=== PATIENT | female | born 1990 | race Hispanic/Latino ===

== ENCOUNTER 2017-05-08 21:12 | Emergency (ER) | payer OTHER ==
[~2017-05-08] VITALS: Ht 152.4 cm; Wt 81.6 kg
[~2017-05-08 21:12] MED LIST: AMOXICILLIN875 M1 PO; FLEXERIL10 MG PO; HYDROCODONE/ACE1 TA1 PO; IBUPROFEN600 M1 PO; IBUPROFEN800 M1 PO; PERCOCET 5-3251 EACH PO; ULTRAM50 M1 PO
[2017-05-08 22:01] VITALS: BP 108/79
--- NOTE | 2017-05-08 23:38 | ED NECK/BACK PAIN COMPLAINT ---
History of Present Illness General Chief Complaint: Neck/Upper Back Pain/Injury Stated Complaint: BACK PAIN, NO KNOWN INJURY Source: patient Exam Limitations: no limitations Vital Signs & Intake/Output Vital Signs & Intake/Output Vital Signs Date Time Temp Pulse Resp B/P B/P Pulse O2 O2 Flow FiO2 Mean Ox Delivery Rate 05/09 0044 16 05/08 2201 97.3 81 18 108/79 97 Room Air ED Intake and Output 05/09 0000 05/08 1200 Intake Total 100 Output Total Balance 100 Intake, Oral 100 Patient 180 lb Weight Weight Estimated Measurement Method Allergies Coded Allergies: No Known Allergies (02/01/17) Reconcile Medications Amoxicillin 875 MG TABLET 1 TAB PO BID dental eruption Cyclobenzaprine HCl 10 MG TABLET 1 TAB PO TID PRN PAIN Ibuprofen 800 MG TABLET 1 TAB PO TID PRN PAIN Ibuprofen 800 MG TABLET 800 MG PO Q6P PRN UTERINE CRAMPING Triage Note: RECEIVED 26 YO FEMALE C/O RIGHT BACK PAIN FROM UPPER BACK TO LOWER BACK, STARTED YESTERDAY, MUCH WORSE THIS AM. NO KNOWN INURY. PT PICKED UPN A BOX THE WRONG WAY, NO PAIN AT FIRST. PAIN WORSE WITH MOVEMENT Triage Nurses Notes Reviewed? yes Onset: Abrupt Duration: day(s): (1), constant, continues in ED, getting worse Timing: single episode today Quality/Severity: severe, sharpness Location: C-spine, T-spine, lumbar spine, paraspinous muscles Radiation: none Context: lifting Method of Injury: unknown Loss of Consciousness: no loss of consciousness Modifying Factors: movement Associated Symptoms: lower back pain, muscle spasm LMP (ages 10-50): unknown : No Patient currently breastfeeds: No HPI: 26-year-old female with no past medical history presents for evaluation of pain in her upper or lower back neck and right shoulder. This pain started today and is gradually been getting worse. There is no trauma. Patient reports that she did berry picker a box yesterday and thinks this may have triggered the pain. The pain is worse with any type of movement of the back neck or right shoulder. No numbness or tingling. She is not taking any medicine for this. She has no history of back problems previously. No urinary symptoms, bowel or bladder dysfunction, fever, abdominal pain, shortness of breath, chest pain or any other associated symptoms. She rates pain as a 10 out of 10. (Lexx Poole) Past History Travel History Traveled to [place] past 21 day No Medical History Any Pertinent Medical History? see below for history Neurological: NONE EENT: NONE Cardiovascular: NONE Respiratory: asthma Gastrointestinal: NONE Hepatic: NONE Renal: NONE Musculoskeletal: NONE Psychiatric: NONE Endocrine: NONE Blood Disorders: NONE Cancer(s): NONE GAS SPECIALIST/Reproductive: NONE Surgical History Surgical History: non-contributory Psychosocial History What is your primary language [place] Tobacco Use: Never used Family History Hx Contributory? No (Lexx Poole) Review of Systems Review of Systems Constitutional: Reports: no symptoms. Eyes: Reports: no symptoms. Ears, Nose, Throat, Mouth: Reports: no symptoms. Respiratory: Reports: no symptoms. Cardiovascular: Reports: no symptoms. Gastrointestinal/Abdominal: Reports: no symptoms. Musculoskeletal: Reports: see HPI, back pain, joint pain, muscle pain, muscle stiffness, neck pain. Skin: Reports: no symptoms. Neurological/Psychological: Reports: no symptoms. All Other Systems: Reviewed and Negative (Lexx Poole) Physical Exam Physical Exam General Appearance: well developed/nourished, no apparent distress, alert, awake Head: atraumatic, normal appearance Eyes: Bilateral: normal appearance, PERRL, EOMI, normal inspection. Ears, Nose, Throat, Mouth: hearing grossly normal, moist mucous membrane Neck: normal inspection, supple, limited range of motion, muscle spasm, pain, paraspinous muscle tender, no midline tenderness, CERVICAL PARASPINOUS MUSCLES TENDER TO PALPATION BILATERALLY. nO MIDLINE PAIN NO STEP-OFFS OR DEFORMITIES NO BRUISING SWELLING OR ABRASIONS Respiratory: normal breath sounds, chest non-tender, no respiratory distress, lungs clear Cardiovascular: regular rate/rhythm, normal peripheral pulses Peripheral Pulses: 2+ radial (R), 2+ radial (L) Gastrointestinal: normal bowel sounds, soft, non-tender, no organomegaly Back: normal inspection, decreased range of motion, no vertebral tenderness, THERE IS DIFFUSE PARASPINAL TENDERNESS OF THE THORACIC AND LUMBAR SPINE BILATERALLY. nO MIDLINE TENDERNESS NO STEP-OFFS OR DEFORMITIES PAIN IS WORSE ON THE RIGHT SIDE. nO BRUISING SWELLING OR ABRASIONS. Extremities: non-tender, lIMITED RANGE OF MOTION OF THE RIGHT SHOULDER DUE TO PAIN. nEUROVASCULAR SUPPLY IS INTACT. pAINFUL PALPATION OF THE RIGHT DELTOID AND RIGHT TRAPEZIUS MUSCLE. nO CLAVICULAR TENDERNESS. nO BRUISING SWELLING OR ABRASIONS NEUROVASCULAR SUPPLY INTACT ALL EXTREMITIES Straight Leg Raising: Right: Negative. Left: Negative. DTR: Patellar: 2: L4 Right, L4 Left. Neurologic/Psych: no motor/sensory deficits, awake, alert, oriented x 3, normal gait Skin: intact, normal color, warm/dry Core Measures CVA/TIA Diagnosis: No (Lexx Poole) Progress Differential Diagnosis: C spine injury, cauda equina syn, herniated disc, myofascial strain, pyelo/UTI, sciatica, ureterolithiasis Plan of Care: Orders Procedure Date/time Status URINE 05/08 2328 Complete Laboratory Tests 05/09/17 0015: Urine Test NEGATIVE Patient seen and evaluated. She is has diffuse muscular tenderness of the neck thoracic and lumbar spine. There was no trauma. Patient was medicated with Tylenol Toradol and cyclobenzaprine. X-rays of the neck thoracic spine and lumbar spine ordered. Patient reports complete resolution of her symptoms after being medicated. She is now moving all extremities equally. Full range of motion of the upper and lower back. She states her pain is a 0 out of 10. She does not wish to stay for x-rays. Patient appears clinically well she has no bony point tenderness. X-rays canceled. Patient was instructed to rest avoid heavy lifting bending or physical activity. Continue Tylenol ibuprofen cycle Benzedrine as needed. Follow-up with primary care doctor discussed return precautions patient appears well she agrees the plan. (Lexx Poole) Departure Departure Disposition: HOME OR SELF CARE Condition: Stable Clinical Impression Primary Impression: Muscle spasm Referrals: Patient Has No Primary Care Dr (PCP/Family) Additional Instructions: Rest, avoid heavy lifting bending excessive physical activity. Continue ibuprofen 800 mg every 8 hours as needed for pain. Cyclobenzaprine can also be used every 8 hours as needed this may cause drowsiness. MAKE A follow-up with YOUr primary care doctor to reveal results today's visit. On his your symptoms return with any concerns. Departure Forms: Customer Survey General Discharge Information Prescriptions: Current Visit Scripts Ibuprofen 1 TAB PO TID PRN PAIN #30 TAB Cyclobenzaprine HCl 1 TAB PO TID PRN PAIN #30 TAB (Lexx Poole) PA/CIRCULATION CLERK Co-Sign Statement Statement: ED Attending supervision documentation- [] I saw and evaluated the patient. I have also reviewed all the pertinent lab results and diagnostic results. I agree with the findings and the plan of care as documented in the PA's/CIRCULATION CLERK's documentation. [x] I have reviewed the ED Record and agree with the PA's/CIRCULATION CLERK's documentation. [] Additions or exceptions (if any) to the PAs/CIRCULATION CLERK's note and plan are summarized below: [] (Sonny JAVIER,Apolinar Horta)
[2017-05-09] MEDS ORDERED: CYCLOBENZAPRINE10 M1 PO (00:34)
[2017-05-09] MEDS ORDERED: IBUPROFEN800 M1 PO (00:34)
== END 2017-05-09 00:48 ==
LOC: ERH 21:12
DX: M62.830 Muscle spasm of back (principal)
CPT/HCPCS: 81025; 96372; J1885

== ENCOUNTER 2017-08-04 02:49 | Inpatient (IN) | payer OTHER ==
--- NOTE | 2017-08-03 14:35 | History & Physical Pre-Op ---
General Information and HPI History of Present Illness: 26-year-old 3 para 3 with a centimeter right ovarian mass anterior to the uterine wall admitted today for laparoscopic excision. Ultrasound and MRI testing is consistent with either dermoid cyst versus hemorrhagic cyst. CA-125 testing within normal limits Allergies/Medications Allergies: Coded Allergies: No Known Allergies (08/02/17) Home Med list No Known Home Medications Past History Medical History Neurological: NONE EENT: NONE Cardiovascular: NONE Respiratory: asthma Gastrointestinal: NONE Hepatic: NONE Renal: NONE Musculoskeletal: NONE Psychiatric: NONE Endocrine: NONE Blood Disorders: NONE Cancer(s): NONE GREY TENDER/Reproductive: NONE Surgical History Pertinent Surgical History: non-contributory Review of Systems Review of Systems Constitutional: Reports: no symptoms. EENTM: Reports: no symptoms. Cardiovascular: Reports: no symptoms. Respiratory: Reports: no symptoms. GI: Reports: no symptoms. Genitourinary: Reports: no symptoms. Musculoskeletal: Reports: no symptoms. Skin: Reports: no symptoms. Neurological/Psychological: Reports: no symptoms. Hematologic/Endocrine: Reports: no symptoms. Immunologic/Allergic: Reports: no symptoms. All Other Systems: Reviewed and Negative Exam & Diagnostic Data Last 24 Hrs of Vital Signs/I&O Intake & Output 08/03 1600 08/03 0800 08/03 0000 Intake Total Output Total Balance Patient 168 lb Weight Physical Exam: HEENT: Normocephalic atraumatic Chest: Clear to auscultation bilaterally Cardiovascular: Normal S1, S2, no murmur rub or gallop Abdomen: Soft nontender nondistended, no mass Pelvic: Deferred to or Extremities: No clubbing cyanosis or edema Neurologic: Nonfocal Assessment/Plan Assessment/Plan: Pelvic Mass. Plan: Laparoscopy, excision; possible laparotomy As Ranked By This Provider Problem List: 1. Pelvic mass
[2017-08-04] VITALS (7 sets, daily range): BP systolic 106–110; BP diastolic 70–80
[~2017-08-04] VITALS: Ht 152.4 cm; Wt 80.7 kg
[~2017-08-04 02:49] MED LIST changes: +CYCLOBENZAPRINE10 M1 PO
[2017-08-04 19:59] LABS: ABSOLUTE BASOPHIL COUNT 0 /CUMM (0.0-0.2); ABSOLUTE EOSINOPHIL COUNT 0 /CUMM (0.0-0.7); ABSOLUTE GRANULOCYTE CT 11.2 /CUMM (1.4-6.5); ABSOLUTE LYMPH COUNT 0.7 /CUMM (1.2-3.4); ABSOLUTE MONOCYTE COUNT 0.1 /CUMM (0.10-0.60); BASOPHIL % 0.1 % (0.0-2.0); EOSINOPHIL % 0 % (0-5); HEMATOCRIT 37.6 % (37-47); MEAN CORPUSCULAR HGB 28.3 PG (27.0-31.0); MEAN CORPUSCULAR VOLUME 85.6 FL (81.0-99.0); MEAN PLATELET VOLUME 9.3 FL (7.4-10.4); PLATELET COUNT 258 /CUMM (130-400)
[2017-08-04 20:23] LABS: GRANULOCYTE % 93.4 % (42.2-75.2)
[2017-08-05 02:05] VITALS: BP 100/56
[2017-08-05 03:50] VITALS: BP 96/58
[2017-08-05 06:00] VITALS: BP 100/56
[2017-08-05 08:00] VITALS: BP 100/56
--- NOTE | 2017-08-05 10:37 | Operative Report ---
Operative/Inv Procedure Report Surgery Date: 08/04/17 Name of Procedure: Diagnostic laparoscopy Laparotomy with left ovarian cystectomy Pre-Operative Diagnosis: Pelvic mass Post-Operative Diagnosis: Dermoid cyst Estimated Blood Loss: less than 50ml Surgeon/Rn Neonatal Icu: Pattie Owens MD,Epi Shepherd M.D. Anesthesia: general endotracheal tube Operative/Procedure Note Note: The patient was brought to the operating room and placed on the OR table in the dorsal supine position. After she was given general anesthesia she was intubated. She was repositioned in a modified dorsal lithotomy. She was prepped and draped in the usual sterile fashion. A Coelho catheter was placed into the bladder and drained clear yellow urine. An infraumbilical skin incision was made with the scalpel and a Veress needle was placed into the abdominal cavity. The abdomen was insufflated under high flow and low pressure until an adequate pneumoperitoneum had been achieved. At this point the Veress needle was removed and replaced with a 5 mm disposable trocar. Trocar was removed from the sleeve and the camera was placed into the trocar sleeve. The patient was placed into Trendelenburg position. A large 8-9 cm pelvic mass was noted on the anterior wall. With possibility of this being carcinoma the decision was made to perform open laparotomy in order to prevent rupture of the capsule of the cyst and contamination of the peritoneal cavity. The laparoscope was removed and patient was set up for laparotomy. Of Pfannenstiel skin incision was made with a scalpel and taken down to the layer of the fascia. The fascia was nicked in the midline and extended bilaterally. The rectus muscles are and the peritoneal cavity was entered bluntly. A large 8-9 cm pelvic mass was noted arising from the left ovary and this is brought to the abdominal incision. The tube appeared to be intact. The ovary was then injected with Pitressin and the ovarian stroma was opened using a scalpel. The underlying mass was dissected away from the overlying ovarian stroma bluntly and sharply until it had been excised completely. The tumor was sent to pathology for verification. The inner lining of the ovarian stroma was coagulated were needed and oversewn using 3-0 Vicryl in a running locking suture.. The abdomen was irrigated. The ovary was placed back into the abdominal cavity rectus muscles were reapproximated with 0 Polysorb. The fascia was closed with 0 Polysorb in a running nonlocking fashion. Subcutaneous tissues were irrigated and coagulated were needed. Skin was closed using 3-0 suture in a subcuticular fashion. Dry sterile dressing was applied to the wound. The patient was then awakened and sent to recovery in good condition. All needle, sponge, and aspirin counts were correct at the end of procedure 2.
--- NOTE | 2017-08-05 10:40 | PN- General Surgery ---
Subjective Subjective: Incisional pain tolerating a regular diet Review of Systems: Positive flatus Objective Vital Signs and I&Os Vital Signs Date Time Temp Pulse Resp B/P B/P Pulse O2 O2 Flow FiO2 Mean Ox Delivery Rate 08/05 0600 98.0 63 18 100/56 98 Room Air 08/05 0350 98.2 73 16 96/58 97 Room Air 08/05 0205 98.0 65 18 100/56 95 Room Air 08/04 2135 97.6 79 18 106/70 98 08/04 2007 98.0 79 18 110/80 95 08/04 2000 98.0 79 18 110/80 08/04 1830 97.9 65 18 106/70 08/04 1756 97.9 65 18 106/70 96 08/04 1708 Room Air 08/04 1621 97.8 86 18 110/70 95 08/04 1600 Room Air 08/04 1600 97.8 86 18 110/70 Intake & Output 08/05 1600 08/05 0800 08/05 0000 08/04 1600 08/04 0800 08/04 0000 Intake Total 1100 1359.6 Output Total 850 800 Balance 250 559.6 Intake, IV 1000 879.6 Intake, Oral 100 480 Number 0 Bowel Movements Output, Urine 850 800 Patient 178 lb Weight Weight Bed scale Measurement Method Physical Exam: Incision with drainage from right side of wound no sign of infection Extremities nontender Assessment/Plan Assessment/Plan Status post laparotomy for ovarian cystectomy postop day #1 Plan: By mouth pain meds, DC thyroid RESPIRATORY COORDINATOR, DC Coelho, regular diet, up out of bed; possible discharge later today Problem List: 1. Pelvic mass Core Measures Venous Thromboembolism VTE Risk Factors Surgery No Mechanical VTE Prophylaxis d/t N/A MechProphylax Ordered No VTE Pharm Prophylaxis d/t Bleeding (Active)
[2017-08-05 12:54] LABS: ABSOLUTE BASOPHIL COUNT 0 /CUMM (0.0-0.2); ABSOLUTE EOSINOPHIL COUNT 0 /CUMM (0.0-0.7); ABSOLUTE GRANULOCYTE CT 11.1 /CUMM (1.4-6.5); ABSOLUTE LYMPH COUNT 2.3 /CUMM (1.2-3.4); ABSOLUTE MONOCYTE COUNT 0.9 /CUMM (0.10-0.60); BASOPHIL % 0.3 % (0.0-2.0); EOSINOPHIL % 0.1 % (0-5); GRANULOCYTE % 77.4 % (42.2-75.2); HEMATOCRIT 34.6 % (37-47); MEAN CORPUSCULAR HGB 28.6 PG (27.0-31.0); MEAN CORPUSCULAR HGB CONC 33.5 G/DL (33.0-37.0); MEAN CORPUSCULAR VOLUME 85.3 FL (81.0-99.0); PLATELET COUNT 259 /CUMM (130-400); RBC DISTRIBUTION WIDTH 12.8 % (11.5-14.5); RED BLOOD CELL CT 4.06 /CUMM (4.20-5.40); WHITE BLOOD CELL COUNT 14.3 /CUMM (4.8-10.8)
[2017-08-05 14:49] VITALS: BP 100/60
[2017-08-05 21:20] LABS: ABSOLUTE BASOPHIL COUNT 0 /CUMM (0.0-0.2); ABSOLUTE EOSINOPHIL COUNT 0.1 /CUMM (0.0-0.7); ABSOLUTE GRANULOCYTE CT 7.1 /CUMM (1.4-6.5); ABSOLUTE LYMPH COUNT 2.5 /CUMM (1.2-3.4); ABSOLUTE MONOCYTE COUNT 0.7 /CUMM (0.10-0.60); BASOPHIL % 0.3 % (0.0-2.0); EOSINOPHIL % 0.6 % (0-5); GRANULOCYTE % 68.5 % (42.2-75.2); HEMATOCRIT 32.1 % (37-47); MEAN CORPUSCULAR HGB 28.3 PG (27.0-31.0); MEAN CORPUSCULAR HGB CONC 33.8 G/DL (33.0-37.0); MEAN CORPUSCULAR VOLUME 83.8 FL (81.0-99.0); MEAN PLATELET VOLUME 8.3 FL (7.4-10.4); PLATELET COUNT 235 /CUMM (130-400); RBC DISTRIBUTION WIDTH 13.1 % (11.5-14.5); RED BLOOD CELL CT 3.83 /CUMM (4.20-5.40); WHITE BLOOD CELL COUNT 10.3 /CUMM (4.8-10.8)
--- NOTE | 2017-08-05 21:30 | PN- OBGYN ---
Surgical Brief Attending Note Brief Attending Note: Called to see patient secondary to pain Seen and evaluated No nausea nor vomiting States pain around left shoulder AVSS Abdomen is soft but distended and incisional tenderness bowel sounds noted Mild erythema around umbilicus and bandage intact over phannensteil incision area Labs Hct 32 and previous was 34 today and stable platelets. Pod #2 s/p LSC converted to Exap for ovarian cystectomy Hemodynamically stable in my opinion and CT scan ordered per Dr Mccoy to assess for obstruction. Doubt active bleeding but may represent ileus as she is distended. Will follow up after CT imaging.
[2017-08-05 22:04] VITALS: BP 118/80
--- NOTE | 2017-08-05 23:15 | CT SCAN REPORT ---
EXAMINATION: CT ABDOMEN AND PELVIS WITH CONTRAST CLINICAL INFORMATION: Intractable pelvic pain status post ovarian cystectomy. COMPARISON: July 02, 2017. TECHNIQUE: Contiguous axial thin section helical images of the abdomen and pelvis were performed following the administration of 95 mL of intravenous Optiray 320. The data set was reformatted in the coronal and sagittal planes and reviewed on an independent workstation. DLP: 725 mGy-cm. FINDINGS: There is mild dependent bibasilar atelectasis. The visualized lung bases are otherwise clear. The visualized portions of the heart are unremarkable. The liver is of normal size and attenuation without focal lesions nor intrahepatic biliary ductal dilation. A normal gallbladder is identified. There is no wall thickening or discernible pericholecystic fluid. The spleen, pancreas, adrenal glands are unremarkable. Both kidneys are of normal size and attenuation without hydronephrosis or nephrolithiasis. Following the administration of IV contrast, prompt symmetric nephrograms are displayed. There is a small amount of pneumoperitoneum. There is a small amount of subcutaneous gas within the lower anterior abdominal wall. There is no abdominal free fluid. There is neither mesenteric nor retroperitoneal lymphadenopathy. Normal unopacified loops of small and large bowel are identified. A normal appendix is identified. An IUD is in place. The previously identified left adnexal cyst is no longer present. There is a left adnexal fullness measuring approximately 5.2 x 3.4 cm on image 589/832 which could correspond to the left ovary. Posterior to the uterus on image 597/832, there is an approximately 18 mm focus of high attenuation. There is no pelvic free fluid. The urinary bladder is unremarkable. There is neither pelvic nor inguinal lymphadenopathy. Bone windows: Neither sclerotic nor lytic bone lesions are identified. IMPRESSION: Small amount of pneumoperitoneum which would be expected in a patient recently postop. There is also anterior abdominal wall subcutaneous gas. No evidence for acute abdominal or pelvic inflammatory or infectious processes. No drainable collections. Fullness to the left adnexa which could correspond to the left ovary. In addition, there is an 18 mm focus of high attenuation posterior to the uterus which is nonspecific, though could correspond to a complicated or hemorrhagic focus within the right ovary. Consider correlation with ultrasound for further tissue characterization.
[2017-08-06 07:27] VITALS: BP 112/76
[2017-08-06] MEDS ORDERED: PERCOCET 5-3251 EACH PO (08:55)
[2017-08-06] MEDS ORDERED: IBUPROFEN400 M1 PO (08:55)
== END 2017-08-06 11:35 | DRG 513 ==
LOC: STS 02:49 → PACUH 12:17 → 2NA 12:23 → ENRESERV 12:37 → ENTRNSPT 13:44 → EDTRNSPT 13:54 → EDTRNSPTSTS 13:54 → 2NA 14:05 → CMPTRNSPT 14:22 → 2NA 08-05 00:25 → ENPENDDIS 08-06 08:54 → 2NA 08-06 11:35
PROVIDERS: Obstetrics & Gynecology
PROC: 0UB10ZZ Excision of Left Ovary, Open Approach (ICD-10-PCS; principal; 2017-08-04)
PROC: 0WJJ4ZZ Inspection of Pelvic Cavity, Percutaneous Endoscopic Approach (ICD-10-PCS; principal; 2017-08-04)
PROC: 3E0T3BZ Introduction of Anesthetic Agent into Peripheral Nerves and Plexi, Percutaneous Approach (ICD-10-PCS; 2017-08-04)
DX: D27.1 Benign neoplasm of left ovary (principal); Z53.31 Laparoscopic surgical procedure converted to open procedure; J45.909 Unspecified asthma, uncomplicated
CPT/HCPCS: 2NASP; 36592; 74177; 81025; 82436; 87086; J0694; J1170; J1885; J2405; J3490

== ENCOUNTER 2017-10-30 11:24 | Emergency (ER) | payer OTHER ==
[~2017-10-30] VITALS: Ht 152.4 cm; Wt 79.4 kg
[~2017-10-30 11:24] MED LIST changes: +IBUPROFEN400 M1 PO; +KEFLEX500 M1 PO
--- NOTE | 2017-10-30 11:30 | ED SKIN/ALLERGY COMPLAINT ---
History of Present Illness General Chief Complaint: Allergy Symptoms Stated Complaint: ALLERGIC REACTION Source: patient Exam Limitations: no limitations Vital Signs & Intake/Output Vital Signs & Intake/Output Vital Signs Date Time Temp Pulse Resp B/P B/P Pulse O2 O2 Flow FiO2 Mean Ox Delivery Rate 10/30 1404 98.9 68 18 122/64 98 Room Air 10/30 1347 Room Air Room Air 10/30 1128 99.1 93 20 134/74 96 Room Air Allergies Coded Allergies: No Known Allergies (08/02/17) Reconcile Medications Cephalexin (Keflex) 500 MG CAPSULE 1 CAP PO TID WOUND Ibuprofen 400 MG TABLET 800 MG PO Q6P PRN PAIN Methylprednisolone. (Medrol) 4 MG TAB.DS.PK 1 DP PO AD ALLERGIC REACTION 6 on day 1 then reduce by one tablet daily until gone Oxycodone HCl/Acetaminophen (Percocet 5-325 MG Tablet) 5 MG-325 MG TABLET 1 TAB PO Q4P PRN PAIN SCALE 4-6 (MODERATE) Triage Nurses Notes Reviewed? yes Onset: Abrupt Duration: hour(s):, constant Timing: single episode today Severity: moderate, severe HPI: 26-year-old female comes into the emergency room with allergic reaction. Patient reports that about an hour ago. She's had itching and swelling to her face and feels like it is difficult to breathe. She reports that she was using some Clorox wipes that she never used before. She denies any prior history of this. Denies any other associated symptoms. Comes in for further evaluation. Past History Travel History Traveled to [place] past 21 day No Medical History Any Pertinent Medical History? see below for history Neurological: NONE EENT: NONE Cardiovascular: NONE Respiratory: asthma Gastrointestinal: NONE Hepatic: NONE Renal: NONE Musculoskeletal: NONE Psychiatric: NONE Endocrine: NONE Blood Disorders: NONE Cancer(s): NONE CHILD'S NURSE/Reproductive: NONE History of MRSA: No History of VRE: No History of CDIFF: No Surgical History Surgical History: ovarian cysts removal Psychosocial History Who do you live with Significant Other What is your primary language Lithuanian Family History Hx Contributory? No Review of Systems Review of Systems Constitutional: Reports: no symptoms. EENTM: Reports: no symptoms. Respiratory: Reports: no symptoms. Cardiovascular: Reports: no symptoms. GI: Reports: no symptoms. Genitourinary: Reports: no symptoms. Musculoskeletal: Reports: no symptoms. Skin: Reports: no symptoms. Neurological/Psychological: Reports: no symptoms. Hematologic/Endocrine: Reports: no symptoms. Immunologic/Allergic: Reports: see HPI. All Other Systems: Reviewed and Negative Physical Exam Physical Exam General Appearance: well developed/nourished, alert, awake, mild distress Head: atraumatic, periorbital swelling Eyes: Bilateral: normal appearance. Ears, Nose, Throat: normal ENT inspection, hearing grossly normal Neck: normal inspection Respiratory: no respiratory distress Back: normal inspection Extremities: normal inspection, normal range of motion, no edema Neurologic/Psych: awake, alert, oriented x 3, normal mood/affect Skin: rash, maculopapular erythematous diffuse Progress Differential Diagnosis: abscess/cellulitis, allergic reaction, anaphylaxis, angioedema, contact dermatitis Plan of Care: Current Medications Sig/Omer Start time Last Medication Dose Stop Time Status Admin Diphenhydramine HCl 50 MG ONCE ONE 10/300 UNVr (Benadryl) 10/30 1130 Famotidine 20 MG ONCE ONE 10/30 1129 UNVr (Pepcid) 10/30 1130 Methylprednisolone 125 MG ONCE ONE 10/300 UNVr (Solu Medrol) 10/30 113 Departure Departure Disposition: HOME OR SELF CARE Condition: Stable Clinical Impression Primary Impression: Allergic reaction Referrals: Patient Has No Primary Care Dr (PCP/Family) Additional Instructions: Start Medrol Dosepak tomorrow. Take Benadryl at home. Return if any other concerns. Please go over all results of today's visit with your primary care doctor. Contact your primary care doctor to let them know you were here in the emergency room. There may be nonspecific findings which may not be related to your visit today here in the emergency room but may require further evaluation and chronic monitoring by your primary care doctor. If you had a laceration today the chance of foreign body always remains. You should follow-up with your primary care doctor for recheck in 3-5 days for a wound check. If you had an x-ray done there is a chance that a fracture could have been missed on initial read and you should follow-up with your primary care doctor for repeat x-rays if symptoms persist. If your blood pressure was elevated here in the emergency room please have rechecked by [facility] primary care doctor within the next 48. If you were prescribed a narcotic here in the emergency room or any type of controlled substances you're not allowed to drive while taking this medication or operate any type of heavy machinery. Narcotics can make you feel lightheaded dizziness nausea and can cause constipation. You may need to roll picker a stool softener. Thank you for choosing [facility] emergency room. Please return to the emergency room immediately if you have any other concerns worsening of symptoms. Departure Forms: Customer Survey General Discharge Information Prescriptions: Current Visit Scripts Methylprednisolone. (Medrol) 1 DP PO AD #1 DP 6 on day 1 then reduce by one tablet daily until gone Comments 10/30/2017 3:24:40 PM Patient feels significantly better. Symptoms have resolved. Rash is gone. Swelling improved. Patient feels stable and ready for discharge. Return if any other concerns worsening symptoms.
[2017-10-30 14:04] VITALS: BP 122/64
[2017-10-30] MEDS ORDERED: MEDROL4 M2 PO (14:27)
== END 2017-10-30 14:47 ==
LOC: ERH 11:24
DX: T78.40XA Allergy, unspecified, initial encounter (principal)
CPT/HCPCS: 96374; 96375; J1200; J2930